=== PATIENT | female | born 1980 | race Hispanic/Latino ===

== ENCOUNTER 2017-04-15 12:33 | Day surgery (SDC) | payer OTHER ==
[2017-04-15 13:39] VITALS: BP 111/71; TEMP 98.1
[2017-04-15 13:40] VITALS: BMI 30.8
[2017-04-15] MEDS ORDERED: HumaLOG 300 UNITS/3 ML VIAL SC SCH (16:30)
--- NOTE | 2017-04-15 20:35 | PRG ---
DATE OF SERVICE: 04/15/2017 PRIMARY OB: Clinic. CHIEF COMPLAINT: Abdominal pains. HISTORY OF PRESENT ILLNESS: The patient is a 36-year-old female with an intrauterine at 36 weeks and 4 days, whose is complicated by type 2 diabetes. She is being followed at the Clinic and is receiving weekly ultrasounds for surveillance with the last being today. BPP is reported as being 8/8 with an BRAD of 22. Patient was sent to Labor and Delivery for evaluation because of contractions. Patient reports that she feels contractions that are not very painful, but she notices them. She denies any vaginal bleeding, leakage of fluid. She denies any recent illness, fever, fall, headache, chest pain, shortness of breath, nausea, vomiting, diarrhea, constipation. She denies any new rashes. She denies any vaginal bleeding, leakage of fluid or urinary symptoms. She does report that her blood sugars have been under good control. She takes 9 units of Lantus at night, 4 units of Humalog before her meals and she reports fasting blood sugars in the 80s to 90s and postprandial in the 100s. PAST MEDICAL HISTORY: Type 2 diabetes. PAST SURGICAL HISTORY: Noncontributory. SOCIAL HISTORY: Denies drug, alcohol or tobacco use. OBSTETRIC HISTORY: She has had 3 term deliveries. OB LABS: Blood type is O positive. She is rubella immune, RPR nonreactive, hepatitis B surface antigen nonreactive, HIV nonreactive. Her most recent A1c was 6.0. REVIEW OF SYSTEMS: Per HPI. PHYSICAL EXAMINATION: VITAL SIGNS: Blood pressure is 111/71, heart rate of 86, respiratory rate of 18 , satting 99% on room air with a temperature of 98.1. GENERAL: She appears to be in no acute distress. She is alert and oriented, and cooperative and pleasant to interact with. HEAD: Normocephalic, atraumatic. LUNGS: Clear to auscultation bilaterally. HEART: Regular rate and rhythm. ABDOMEN: Soft, nontender and gravid. EXTREMITIES: Nontender, nonedematous. CERVICAL EXAM: 3-4 cm, 50% effaced and -3 station, which has been unchanged after 5 hours. heart tracing performed and may noted to be in the 150s with moderate long -term variability, positive accelerations, no decelerations. Contractions when she first arrived appeared to be about every 2-3 minutes and about every 3-4 minutes after 5 hours, but again were not causing distress or discomfort to the patient. Blood sugar on arrival was 81 and after her meal was 183. Patient was given 4 units of Humalog as dictated by her insulin schedule. ASSESSMENT AND PLAN: The patient is a 36-year-old female with an intrauterine at 36 weeks and 4 days with a history of type 2 diabetes , well controlled on insulin. The patient is having contractions and a dilated cervix, but made no change here at the hospital after 5 hours of monitoring. Patient continues to contract but again denies any discomfort with them. She reports she is comfortable going home and states that she lives near the hospital there in [place] and can go there; therefore evaluation if need be. She has an appointment on Wednesday with the Clinic for which she has been advised to keep. She has been given labor precautions. Fetus is a category 1 tracing and is reassuring. LUCILAD
== END 2017-04-15 18:57 | disposition home or self-care (01) ==
LOC: L&D/OP 12:33
PROVIDERS: ATTEND Obstetrics & Gynecology
DX: O60.03 Preterm labor without delivery, third trimester (principal); O24.913 Unspecified diabetes mellitus in pregnancy, third trimester; Z3A.36 36 weeks gestation of pregnancy; Z79.4 Long term (current) use of insulin
CPT/HCPCS: 36416; 99284